=== PATIENT | female | born 1990 | race Caucasian/White ===

== ENCOUNTER 2016-12-23 12:46 | Outpatient (CLI) | payer OTHER ==
[2016-12-23 13:15] VITALS: BMI 29.0
== END 2016-12-23 15:24 | disposition home or self-care (01) ==
LOC: FBCOUT 12:46 → FBC 12:46 → FBCOUT 15:24
PROVIDERS: ATTEND Advanced Practice Midwife
DX: O47.1 False labor at or after 37 completed weeks of gestation (principal); Z3A.38 38 weeks gestation of pregnancy
CPT/HCPCS: 59025; G0463

== ENCOUNTER 2016-12-26 18:23 | Outpatient (CLI) | payer OTHER ==
[2016-12-26 18:40] VITALS: BMI 28.5
== END 2016-12-26 21:14 ==
LOC: FBCOUT 18:23 → FBC 18:26 → FBCOUT 21:14
PROVIDERS: ATTEND Advanced Practice Midwife
DX: O47.1 False labor at or after 37 completed weeks of gestation (principal); Z3A.39 39 weeks gestation of pregnancy

== ENCOUNTER 2017-01-08 20:33 | Inpatient (IN) | payer OTHER ==
[2017-01-08 20:48] VITALS: BMI 29.8
[2017-01-08] MEDS ORDERED: LIDOCAINE 1% (PRES FREE) 30 ML VIAL ONE ×2 (21:04→23:21)
[2017-01-08] MEDS ORDERED: LIDOCAINE Viscous 2% 15 ML UDCUP ONE ×2 (21:04→23:21)
[2017-01-08] MEDS ORDERED: MINERAL OIL 25 ML BOT ONE ×2 (21:04→23:21)
[2017-01-08] MEDS ORDERED: OXYTOCIN 10 UNITS/ML VIAL ONE ×2 (21:04→23:21)
[2017-01-08] MEDS ORDERED: OXYTOCIN IN NS 0 ML IV ONE (21:05)
[2017-01-08] MEDS ORDERED: OXYTOCIN 10 UNITS/ML VIAL IM ONE (21:18)
[2017-01-08] MEDS ORDERED: HYDROCODONE/ACETAMINOPHEN 5/325MG TABLET PO PRN (22:06)
[2017-01-08] MEDS ORDERED: LANOLIN 50 APPLIC/7G TUBE TP PRN (22:06)
[2017-01-08] MEDS ORDERED: DIPHTH,PERTUSS(ACELL),TET VAC 0.5 ML VIAL IM V ONE (22:06)
[2017-01-08] MEDS ORDERED: CALCIUM CARBONATE 500 MG TAB.CHEW PO PRN (22:06)
[2017-01-08] MEDS ORDERED: ACETAMINOPHEN 325 MG TABLET PO PRN (22:06)
[2017-01-08] MEDS ORDERED: MEASLES,MUMPS&RUBELLA VACCINE 0.5 ML VIAL SUB-Q V ONE (22:06)
[2017-01-08] MEDS ORDERED: BENZOCAINE/MENTHOL 60 APPLIC/BOT TP PRN (22:06)
[2017-01-08] MEDS ORDERED: DOCUSATE SODIUM 100 MG CAPSULE PO PRN (22:06)
[2017-01-08] MEDS: IBUPROFEN 800 MG TABLET PO SCH (22:13)
[2017-01-08] MEDS ORDERED: OXYTOCIN IN NS 500 ML IV ONE (23:21)
--- NOTE | 2017-01-08 23:45 | PCMDEL ---
Delivery Note - Labor 1st stage (hr/min):: 1h6m 2nd stage (hr/min):: 3m 3rd stage (hr/min):: 7m Total (hr/min):: 1h16m Pushed (hr/min):: 3m - Delivery Delivery (Date): 01/08/17 Delivery (Time): 21:09 Gender: Female Presentation: Cephalic Position: OA Umbilical Cord: 3 Vessel, Nuchal Cord Delayed Cord Clamping:: > 3 min 1 Minute Total: 9 5 Minute Total: 9 Placenta:: intact, shultze, accessory lobe EBL:: 150 Perineum:: intact Suture:: none Anesthesia/Meds:: none Length ROM:: 49min Comments:: 1st stage summary: Pt arrived at [facility] shortly after SROM at home. Progressed rapidly to complete dilation and spontaneously pushing while in triage. Unable to move pt to labor room due to rapid progression of labor. FHTs Category 1 throughout. Light mec-stained fluid noted. warmer placed outside of triage room prior to delivery. 2nd stage summary: Pushed well in semi-fowlers. Head rotated OP to OA on the perineum, head born OA. Loose nuchal cord noted, body somersaulted through. viable female infant, Apgars 9/9. with spontaneous cries, placed on maternal abdomen for drying and stimulation. Cord clamped and cut after pulsations ceased. 3rd stage summary: Spontaneous delivery of intact placenta in Shultze, accessory lobe and 3-vessel cord noted. Fundus immediately firm at 2FB below the umbilicus. IM pitocin administered d/t precipitous delivery. Perineum inspected and a shallow left vaginal laceration was noted just above the perineum-not repaired, as it was not actively bleeding and was well- approximated. Baby [id number] with mom and initiated within 30 minutes of life. IPU=[id number].
--- NOTE | 2017-01-08 23:58 | PCMAN ---
OB Admission Note - History : 5 Term: 3 Abortions (S&E): 1 Livin Gestational Age (weeks): 41 Days (#/7): 1 Admit Cervical Dilation:: unknown Admit Presentaton:: vertex Membrane Status: Ruptured Rupture (Date): 01/08/17 Rupture (Time): 21:09 Membranes Comment:: ligh mec-stained fluid Labor Onset (Date): 01/08/17 Labor Onset (Time): 20:00 Contractions: Yes Contraction Frequency:: q2-3 min Heart Rate:: 130 (moderate variability, accels present, decels absent) Status:: Category 1 EFW:: not assessed d/t precipitous delivery Summary of Course:: Onset of care at 10wks x14 visits. TERRENCE by LMP confirmed by 1st trimester ultrasound. complicated by pubic symphysis dysfunction and mild polyhydramnios (HERNANDO=26cm) diagnosed today, otherwise uncomplicated course. Pre- BMI=26, 26lb total weight gain. - Labs Blood Type: B (+) positive Hct/Hgb:: 12.4 Rubella Status: Immune GBS Status: Negative Abnormal Labs: None - Review of Systems C/o frequent painful contractions, SROM and urge to push. All else negative. - Physical Exam General: Mild Distress (In pain due to contractions) Psych/Mental Status: Mood/Affect Appropriate Genitourinary: Normal Female Genitalia Extremities: Full ROM - Problems (1) Active labor at term Status: Acute Code: [id number]/Plan: Admit note written after delivery d/t rapid progression of labor. A: 26yo IUP at 41w1d Active labor at term-precipitous delivery in triage room. No delivery complications besides being precipitous-couplet stable & bleeding WNL Fetus Category 1-unable to get complete NST d/t rapid labor progression SROM for light mec-stained fluid GBS neg P: See delivery note. Admitted to [facility] following delivery in triage Standard orders placed Plans BTL-consent signed previously, will start NPO status at 0500 tomorrow, IV & fluid orders placed. Will notify on-call OB at 0700 tomorrow.
[2017-01-09] MEDS: IBUPROFEN 800 MG TABLET PO SCH (04:56)
[2017-01-09] MEDS: LACTATED RINGERS 1,000 ML IV SCH ×2 (05:50→09:16)
[2017-01-09 05:56] LABS: HEMOGLOBIN 11.6 gm/l (12.0-16.0); MEAN CELL VOLUME 85.9 fl (81.0-99.0); MEAN CORPUSCULAR HEMOGLOBIN 29.3 pg (27.0-31.0); MEAN CORPUSCULAR HGB CONC 34.1 g/dl (33.0-37.0); RED CELL DISTRIBUTION WIDTH 12.9 % (11.5-14.5)
--- NOTE | 2017-01-09 09:03 | PDOC44 ---
- Subjective Day: 1 An aM feels great about how her went. is going well. She spent most of the night skin to skin. She has been NPO since 0500 in preparation for BTL. Reports Flatus, Reports Pain Tolerable, Reports , Reports Lochia Light, Reports Other (Voiding easily, ambulating without difficulty.) - Objective Temp Pulse Resp BP Pulse Ox 98.1 F 86 16 115/68 01/09/17 01:10 01/09/17 01:10 01/09/17 01:10 01/09/17 01:10 Lab Results 01/09/17 05:45 WBC 15.9 H RBC 3.96 L Hgb 11.6 L Hct 34.0 L Plt Count 196 Current Medications Generic Name Dose Route Start Last Admin Trade Name Freq PRN Reason Stop Dose Admin Acetaminophen 325 - 650 mg 01/08/17 22:06 Tylenol PO Q4H PRN Pain (Mild) Acetaminophen/Hydrocodone Bitart 1 - 2 tab 01/08/17 22:06 [place] 5/325 PO Q4H PRN Pain (Moderate) Benzocaine/Menthol 1 applic 01/08/17 22:06 Dermoplast TP PRN PRN Patient Comfort Calcium Carbonate/Glycine 500 - 1,000 mg 01/08/17 22:06 Tums PO BID PRN Indigestion Docusate Sodium 100 mg 01/08/17 22:06 Colace PO DAILY PRN Comfort Emollient Ointment 1 applic 01/08/17 22:06 [id number] TP PRN PRN sore nipples Lactated Ringer's 1,000 mls @ 125 mls/hr 01/08/17 23:45 01/09/17 05:50 Lactated Ringers IV 125 mls/hr .Q8H DANICA Administration Ibuprofen 800 mg 01/08/17 22:06 01/09/17 04:56 Motrin PO 800 mg Q6H DANICA Administration Sodium Chloride 10 ml 01/08/17 22:06 Normal Saline 10ml Flush IV PRN PRN IV Flush Sodium Chloride 10 ml 01/09/17 09:00 Normal Saline 10ml Flush IV Q8HR DANICA - Physical Exam General: Afebrile Psych/Mental Status: Mood/Affect Appropriate, Judgment/Insight Intact, Bonding Well Neurological: Grossly Intact, Alert, Oriented x 4 HEENT: Atraumatic Lungs: Clear to Auscultation Bilaterally Cardiovascular: Regular Rate and Rhythm, Normal S1, Normal S2 Breast: Soft, Skin intact, Nipples Intact Fundus: Firm, Midline, Below Umbilicus Genitourinary: Normal Female Genitalia Lochia: Light Rectal Exam: Deferred Extremities: Full ROM - Problems:Assessment/Plan (1) Precipitous delivery, delivered (current hospitalization) Status: Suspected (2) care following vaginal delivery Status: AcuteAssessment/Plan: A: s/ precipitous PP day 1 Stable Breastfeedign well Lochia WNL Pain adeqeuately controlled P: BTL at noon today with Dr. Lewis Anticipate DC to home care tomorrow morning. Disposition: Stable, Anticipate DC Home Tomorrow
--- NOTE | 2017-01-09 09:05 | PDOC36 ---
Provider Note Subject: Discussed BTL with patient. R/B/A discussed. Patient would like to proceed.
[2017-01-09] MEDS ORDERED: SPINAL PROCEDURAL TRAY 1 EACH ONE (13:15)
[2017-01-09] MEDS ORDERED: FENTANYL 100 MCG/2 ML VIAL ONE (14:00)
[2017-01-09] MEDS ORDERED: MIDAZOLAM HCL 1 MG/ML 2ML VIAL ONE (14:00)
--- NOTE | 2017-01-09 14:26 | PCMBTL ---
Brief Post Op Note: Date of Procedure: 01/09/17 Start Time: [] Preoperative Diagnosis: 1. [desires permanent sterilization] Postoperative Diagnosis: 1. [Same] Procedure: [ btl] Surgeon: Shawanda Lewis DO Assist:[] Anesthesia: [spinal] Findings: [normal uterus, normal fallopian tubes] Condition: [stable] Complications: [none] IV Fluids: [500] mLs of LR [] Urine Output: [] mLs Estimated Blood Loss: [10] mLs Specimens: [portion bilateral fallopian tubes] Drains: [N/A] JOB #[id number]
[2017-01-09] MEDS ORDERED: ACETAMINOPHEN 325 MG TABLET PO PRN (14:42)
[2017-01-09] MEDS ORDERED: OXYCODONE/ACETAMINOPHEN 5/325 MG TABLET PO PRN (14:42)
[2017-01-09] MEDS ORDERED: DOCUSATE SODIUM 100 MG CAPSULE PO PRN (14:42)
[2017-01-09] MEDS ORDERED: BENZOCAINE/MENTHOL 60 APPLIC/BOT TP PRN (14:42)
[2017-01-09] MEDS ORDERED: LANOLIN 50 APPLIC/7G TUBE TP PRN (14:42)
--- NOTE | 2017-01-09 16:23 | OP ---
CURTIS KATE : 1990 DATE OF OPERATION: January 09, 2017 PREOPERATIVE DIAGNOSIS: Multiparity, desires permanent sterilization. POST OPERATIVE DIAGNOSIS: Multiparity, desires permanent sterilization. PROCEDURE: bilateral tubal ligation. SURGEON: Corine Lewis D.O. ANESTHESIA: Spinal. FINDINGS: Normal uterus, normal fallopian tubes. CONDITION: Stable. COMPLICATIONS: None. IV FLUIDS: 500 mL of lactated Ringer's. URINE OUTPUT: None. ESTIMATED BLOOD LOSS: 10 mL. SPECIMENS: Portion of bilateral fallopian tubes. DRAINS: None. PROCEDURE: Patient was taken back to the operating room with IV fluids running where spinal anesthesia was easily obtained. She was prepped and draped in a dorsal lithotomy position in a normal sterile fashion. After anesthesia was determined to be adequate, an approximately 4 cm infraumbilical skin incision was made. This incision was carried down to the fascia with Metzenbaum scissors. The fascia was identified, grasped with a Ricardo clamp and elevated. The fascia was entered sharply. An Celio retractor was then placed in the abdominal cavity. The patient's left fallopian tube was identified, grasped with a Angelo, followed out to its fimbriated end. The isthmic portion of the fallopian tube was grasped with a [place] clamp, ligated times two with #2-0 plain. The isthmic portion of the fallopian tube was then cut off with Metzenbaum scissors. The remainder of the fallopian tube was made hemostatic with the Bovie electrocautery device. Once hemostasis was achieved, the tube was gently reintroduced into the abdominal cavity. The same procedure was performed on the patient's right. Once hemostasis was achieved, the tube was returned to the abdominal cavity. The fascia was grasped with a Ricardo clamp and a [id number] stitch was made with #0 Vicryl suture. The skin was reapproximated with #4-0 Vicryl, and the procedure was determined to be complete. The patient was transferred to recovery in stable condition.
[2017-01-09] MEDS: IBUPROFEN 800 MG TABLET PO PRN (17:05)
[2017-01-10] MEDS: IBUPROFEN 800 MG TABLET PO PRN (02:39)
[2017-01-10 06:50] LABS: HEMATOCRIT 32.1 % (37.0-47.0); HEMOGLOBIN 10.8 gm/l (12.0-16.0)
[2017-01-10 08:30] VITALS: BP 130/79
--- NOTE | 2017-01-10 09:12 | PDOC39B ---
Hospital Course: ADMIT DATE: 01/08/17 DISCHARGE DATE:01/10/17 ADMISSION DIAGNOSES: Active Labor PROCEDURES: HISTORY OF PRESENT ILLNESS: 26 year old G5 T3 P A1 L3 at 41 weeks 1 days presenting with active labor. HOSPITAL COURSE: The patient arrived in very active labor and delivered rapidly. She had a bilateral tubal ligation yesterday and is doing well postop. By day of discharge the patient is stable, well and ready to go home. - Physical Exam Vital Signs: Temp Pulse Resp BP Pulse Ox 98.1 F 85 14 130/79 01/10/17 08:25 01/10/17 08:25 01/10/17 08:25 01/10/17 08:25 General: Afebrile Psych/Mental Status: Mood/Affect Appropriate, Bonding Well Neurological: Grossly Intact Breast: Nipples Intact, Other (filling) Fundus: Firm, Midline, Below Umbilicus Abdomen: Other (incision dry, intact. No redness or induration.) Genitourinary: Normal Female Genitalia Lochia: Light Rectal Exam: Deferred Skin: Normal Color, Warm, Dry Wound: Dressing in Place, Dressing Clean/Dry/Intact, Well Approximated - Discharge Diagnosis (1) Postop check Status: AcuteAssessment/Plan: A: Stable post-op day 1 P: Declined narcotic pain medications. - Discharge Plan Condition: Stable Disposition: Home Additional Instructions: Midwifery 'After the ' handout given to patient. Discharge Medications: Will use OTC Ibuprofen Follow-Up: Jaime Caballero CNM [Certified Nurse Brokerage Coordinator] - In 2 weeks
--- NOTE | 2017-01-11 14:31 | SURGPATH ---
[facility] [address] [place] [id number] Patient Name: CURTIS KATE MR#: [id number] : 1990 Gender: F Specimen #: [id number] Collected: 01/09/2017 Received: 01/10/2017 Reported: 01/11/2017 Submitting Phys: CHRIS MCCLELLAN Copy [facility] Phys[facility] MAME KYLE,SENJAYE TURNERMOMARKIEIS-AYAAN IRIZARRY Clinical History / Pre-Operative Diagnosis: Term vaginal delivery, elective sterilization desired Specimen Source / Surgical Procedure Performed: Bilateral fallopian tube segments Interpretation: FALLOPIAN TUBES, BILATERAL, PARTIAL SALPINGECTOMY: - FULL CROSS SECTION OF BILATERAL FALLOPIAN TUBE SEGMENTS SHOWING NO DIAGNOSTIC ABNORMALITIES. Electronically Signed Out Errol Anders M.D., Ph.D. Gross Description: The specimen is received in formalin labeled with the patient's name and "right and left fallopian tubes". The specimen consists of bilateral non-fimbriated 1.5-2.5 cm fallopian tubes. The shorter right tube is marked with a suture and black ink. Operations And Intelligence Assistant submitted in one cassette. ANITA Sawant Microscopic Description: Full cross section of bilateral fallopian tube segments showing no diagnostic abnormalities. 1: [id number] Z30.2
== END 2017-01-10 10:47 | disposition home or self-care (01) | DRG 767 ==
LOC: FBC 20:33 → FBCOUT 20:33 → FBC 21:00 → FBCOUT 21:00 → FBC 01-09 14:03
PROVIDERS: ADMIT Registered Nurse; ATTEND Advanced Practice Midwife
PROC: 10E0XZZ Delivery of Products of Conception, External Approach (ICD-10-PCS; principal; 2017-01-08)
PROC: 0UL70ZZ Occlusion of Bilateral Fallopian Tubes, Open Approach (ICD-10-PCS; 2017-01-09)
DX: O48.0 Post-term pregnancy (principal); O71.6 Obstetric damage to pelvic joints and ligaments; O77.0 Labor and delivery complicated by meconium in amniotic fluid; O62.3 Precipitate labor; O40.3XX0 Polyhydramnios, third trimester, not applicable or unspecified; Z30.2 Encounter for sterilization; Z64.1 Problems related to multiparity; Z3A.41 41 weeks gestation of pregnancy; Z37.0 Single live birth